=== PATIENT | female | born 1990 | race American Indian/Alaskan Native ===

== ENCOUNTER 2016-11-26 07:46 | Emergency (ER) | payer MEDICAID ==
[2016-11-26 08:37] LABS: Basophils % (Auto) 1.4 % (0.0-1.8); Eosinophils % (Auto) 4.7 % (0.0-4.3); Hematocrit 20.3 % (30.3-42.9); Hemoglobin 7.1 gm/dl (10.1-14.3); Mean Corpuscular HGB Conc 35 % (30-34); Mean Corpuscular Hemoglobin 33 pg (28-32); Mean Corpuscular Volume 94 fl (79-97); Platelet Count 360 K/mm3 (140-440); Red Blood Count 2.16 M/mm3 (3.65-5.03); Reticulocyte % 12.19 % (0.78-2.58); White Blood Count 9.3 K/mm3 (4.5-11.0)
[2016-11-26 08:39] LABS: Red Cell Distribution Width 23.6 % (13.2-15.2)
[2016-11-26] MEDS ORDERED: D5NS 0.2% 1,000 ML IV SCH (09:00)
--- NOTE | 2016-11-26 11:04 | Emergency Department Report ---
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 She is previously unknown to me. She is deaf. She is a past medical history of sickle cell disease and DVT in 2010. The patient presents to the ER complaining of rash. The rest started on her bilateral elbows, forearms, and back, and abdomen, bilateral thighs. It is itchy. It is painless. It has been present for a week. The patient denies new clothing, lotions, perfumes, hygiene products. To me she denies chest pain, shortness of breath, abdominal pain, irritative and obstructive urinary symptoms. She is quite adamant that it is painless. The patient reports that she is visiting family from out of town, and that no one else at home is having any issues with bed bugs, or itching or pruritus. -: Gradual Location: chest, back, abdomen, left, right, upper extremity, lower extremity Consistency: constant Improves with: none Worsens with: none Associated Symptoms: denies other symptoms - Related Data Previous Rx's Medication Instructions Recorded Last Taken Type Folic Acid [Folvite] 1 mg PO QDAY #30 tablet 09/07/16 Unknown Rx oxyCODONE /ACETAMINOPHEN [Percocet 2 tab PO Q4H PRN #60 tablet 09/07/16 Unknown Rx 5/325 mg] Permethrin 5% [Acticin 5% CREAM] 1 applicatio TP QDAY #2 tube 11/26/16 Unknown Rx Skin Emollient [Aquaphor] 1 applic TP QID PRN #2 tube 11/26/16 Unknown Rx hydrOXYzine HCL [Atarax] 25 mg PO Q6HR PRN #20 tablet 11/26/16 Unknown Rx Allergies Allergy/AdvReac Type Severity Reaction Status Date / Time No Known Allergies Allergy Verified 06/09/16 07:52 ED Review of Systems ROS: Stated complaint: SICKLE CELL/ RASH/ITCHING Other details as noted in HPI Constitutional: denies: fever, malaise Eyes: denies: vision change ENT: denies: epistaxis Respiratory: denies: cough Cardiovascular: denies: chest pain Gastrointestinal: denies: abdominal pain, nausea, diarrhea Genitourinary: denies: dysuria Musculoskeletal: denies: arthralgia Skin: lesions, pruritus Neurological: denies: weakness ED Past Medical Hx - Past Medical History Hx Hypertension: No Hx CVA: No Hx Heart Attack/AMI: No Hx Congestive Heart Failure: No Hx Diabetes: No Hx Deep Vein Thrombosis: Yes Hx GERD: No Hx Liver Disease: No Hx Renal Disease: No Hx Sickle Cell Disease: Yes Hx Arthritis: No Hx Headaches / Migraines: No Hx Seizures: No Hx Kidney Stones: No Hx Psychiatric Treatment: No Hx Asthma: No Hx COPD: No Hx Tuberculosis: No Hx Dementia: No Hx HIV: No Additional medical history: Deaf - Surgical History Hx Coronary Stent: No Hx Open Heart Surgery: No Hx Pacemaker: No Hx Internal Defibrillator: No Hx Cholecystectomy: Yes Hx Appendectomy: No Hx Breast Surgery: No Additional Surgical History: c section X 2 - Social History Smoking Status: Never Smoker Substance Use Type: None - Medications Home Medications: Home Medications Medication Instructions Recorded Confirmed Last Taken Type Folic Acid [Folvite] 1 mg PO QDAY #30 tablet 09/07/16 11/26/16 Unknown Rx oxyCODONE /ACETAMINOPHEN [Percocet 2 tab PO Q4H PRN #60 tablet 09/07/16 Unknown Rx 5/325 mg] Permethrin 5% [Acticin 5% CREAM] 1 applicatio TP QDAY #2 tube 11/26/16 Unknown Rx Skin Emollient [Aquaphor] 1 applic TP QID PRN #2 tube 11/26/16 Unknown Rx hydrOXYzine HCL [Atarax] 25 mg PO Q6HR PRN #20 tablet 11/26/16 Unknown Rx ED Physical Exam - General Limitations: Language Barrier (deaf), Other (patient noted on cell phone, no distress. texting And playing on cell phone.) General appearance: alert, in no apparent distress - Head Head exam: Present: atraumatic, normocephalic - Eye Eye exam: Present: normal appearance, EOMI. Absent: nystagmus - ENT ENT exam: Present: normal exam, normal orophraynx, mucous membranes moist, normal external ear exam - Neck Neck exam: Present: normal inspection, full ROM. Absent: tenderness, meningismus - Respiratory Respiratory exam: Present: normal lung sounds bilaterally. Absent: respiratory distress, wheezes, rales, rhonchi, stridor, chest wall tenderness, accessory muscle use, decreased breath sounds, prolonged expiratory - Cardiovascular Cardiovascular Exam: Present: regular rate, normal rhythm, normal heart sounds. Absent: bradycardia, tachycardia, irregular rhythm, systolic murmur, diastolic murmur, rubs, gallop - GI/Abdominal GI/Abdominal exam: Present: soft, normal bowel sounds. Absent: distended, tenderness, guarding, rebound, rigid, pulsatile mass - Extremities Exam Extremities exam: Present: normal inspection, full ROM, normal capillary refill , other (there are eczematous lesions noted in the bilateral antecubital fossa. There are numerous raised lesions noted in the bilateral upper and lower extremity's, bilateral lateral thighs. During the leg examination, I am escorted by nurse Darnell Weaver. There is no redness, pus, streaking, crepitus or cellulitis. The compartments are soft. 2+ pulses noted in for 4 extremities ). Absent: tenderness, pedal edema, joint swelling, calf tenderness - Back Exam Back exam: Present: normal inspection, full ROM. Absent: tenderness, CVA tenderness (R), CVA tenderness (L), muscle spasm, paraspinal tenderness, vertebral tenderness - Neurological Exam Neurological exam: Present: alert, normal gait, other (Extraocular movements intact. Tongue midline. No facial droop. Facial sensation intact to light touch in the V1, V2, V3 distribution bilaterally. 5 and 5 strength in 4 extremities.. Sensation is intact to light touch in 4 extremities.). Absent: motor sensory deficit - Psychiatric Psychiatric exam: Present: normal affect, normal mood - Skin Skin exam: Present: warm, dry, rash ED Course Vital Signs 11/26/16 11/26/16 11/26/16 07:58 10:13 10:20 Temperature 98.5 F Pulse Rate 88 77 78 Respiratory 18 13 Rate Blood Pressure 110/68 102/47 O2 Sat by Pulse 97 98 Oximetry 11/26/16 11/26/16 11/26/16 10:27 10:30 11:00 Temperature Pulse Rate 81 77 Respiratory 12 20 21 Rate Blood Pressure 102/47 91/38 O2 Sat by Pulse 97 95 96 Oximetry 11/26/16 11/26/16 11/26/16 11:30 12:00 12:30 Temperature Pulse Rate 66 75 68 Respiratory 24 15 18 Rate Blood Pressure 91/38 91/38 91/38 O2 Sat by Pulse 97 96 100 Oximetry - Reevaluation(s) Reevaluation #1: 11/26/16 12:57 Differential diagnosis: Nonspecific rash, eczema, nonspecific transaminitis, chronic sickle cell disease which is asymptomatic, bedbugs, nonspecific dermatitis Assessment and plan: 26-year-old female with nonspecific rash that is painless. Contrary to what is documented in the nursing note, using a design drafter, the patient is adamant that she is not having pain. She is afebrile with reassuring vital signs, has chronic anemia, chronic elevated reticulocyte count, but appears quite comfortable, without scleral icterus. Has a mild transaminitis, denies irritative obstructive urinary symptoms, and has some pulmonary symptoms. I explained to the patient using a design drafter that her condition is very unlikely to be dangerous or life-threatening, we will start her on Atarax and Aquaphor, and refer her to outpatient dermatology. I did offer the patient empiric treatment for bed bugs, but she does not want it. Nevertheless , I will discharge her with permethrin in case she changes her mind. ED Medical Decision Making - Lab Data Result diagrams: 11/26/16 08:07 11/26/16 11:07 Vital Signs 11/26/16 11/26/16 11/26/16 07:58 10:13 10:20 Temperature 98.5 F Pulse Rate 88 77 78 Respiratory 18 13 Rate Blood Pressure 110/68 102/47 O2 Sat by Pulse 97 98 Oximetry 11/26/16 10:27 Temperature Pulse Rate Respiratory 12 Rate Blood Pressure O2 Sat by Pulse 97 Oximetry Labs 11/26/16 11/26/16 11/26/16 08:07 11:07 11:07 WBC 9.3 RBC 2.16 L Hgb 7.1 L Hct 20.3 L MCV 94 MCH 33 H MCHC 35 H RDW 23.6 H Plt Count 360 Lymph % (Auto) 26.3 [place] % (Auto) 7.5 H Eos % (Auto) 4.7 H Baso % (Auto) 1.4 Lymph # 2.4 [place] # 0.7 Eos # 0.4 Baso # 0.1 Seg Neutrophils % 60.1 Seg Neutrophils # 5.6 Percent Retic 12.19 H Sodium 140 Potassium 3.4 L Chloride 103.3 Carbon Dioxide 25 Anion Gap 15 BUN 5 L Creatinine < 0.2 L Estimated GFR > 60 BUN/Creatinine Ratio 25.00 Glucose 123 H Calcium 9.3 Total Bilirubin 3.70 H AST 79 H ALT 82 H Alkaline Phosphatase 76 Total Protein 6.9 Albumin 4.2 Albumin/Globulin Ratio 1.6 HCG, Quant < 2 - Radiology Data Radiology results: report reviewed, image reviewed X-ray of the chest demonstrates mild cardiomegaly and vascular congestion Critical care attestation.: If time is entered above; I have spent that time in minutes in the direct care of this critically ill patient, excluding procedure time. ED Disposition Clinical Impression: Rash Disposition: DISCHARGED TO HOME OR SELFCARE Is pt being admited?: No Does the pt Need Aspirin: No Condition: Stable Instructions: Acute Rash (ED) Additional Instructions: Take the medications as directed. Wash all linens, clothing, sheets with hot soap and water. Have your current house evaluated by an general counsel for possible bedbug infestation. Laboratory studies indicating chronic anemia, nonspecific elevation in liver function tests, x-ray of the chest and mistreated mild pulmonary vascular congestion and enlarged heart. I recommend that you follow with a primary care doctor for these findings within the next month. Dr. Benoit is a local primary care doctor. Dr. Gonzalez is a local intervention specialist. I recommended follow-up with a local school athletic director as well. Follow-up with a school athletic director within the next [address] Skaggs is a local solar energy specialist. Return to the ER right away with fevers or chills, chest pain or shortness of breath, intractable nausea or vomiting, inability to tolerate liquids. Prescriptions: hydrOXYzine HCL [Atarax] 25 mg PO Q6HR PRN #20 tablet PRN Reason: Itching Permethrin 5% [Acticin 5% CREAM] 1 applicatio TP QDAY #2 tube Skin Emollient [Aquaphor] 1 applic TP QID PRN #2 tube PRN Reason: Itching Referrals: PRIMARY CARE, [Primary Care Provider] - 3-5 Days YOANA GONZALEZ DO [Staff Physician] - 3-5 Days MEGHNA SKAGGS MD [Staff Physician] - 3-5 Days ELSA BENOIT MD [Staff Physician] - 3-5 Days
[2016-11-26 11:46] LABS: Alanine Aminotransferase 82 units/L (7-56); Albumin 4.2 g/dL (3.9-5); Blood Urea Nitrogen 5 mg/dL (7-17); Calcium 9.3 mg/dL (8.4-10.2); Carbon Dioxide 25 mmol/L (22-30); Glucose 123 mg/dL (65-100); Total Protein 6.9 g/dL (6.3-8.2)
[2016-11-26 11:47] LABS: Albumin/Globulin Ratio 1.6 %; Alkaline Phosphatase 76 units/L (35-129); Anion Gap 15 mmol/L; Chloride 103.3 mmol/L (98-107); Potassium 3.4 mmol/L (3.6-5.0); Sodium 140 mmol/L (137-145)
--- NOTE | 2016-11-26 12:20 | XRay Report ---
AP CHEST: HISTORY: Chest pain, sickle cell crisis Compared to 09/03/16. Mild cardiomegaly and mild pulmonary venous congestion have developed. There is no evidence for consolidation, pleural effusion or pneumothorax. Normal bony structures. IMPRESSION: Mild cardiomegaly and vascular congestion.
[2016-11-26 13:12] VITALS: BP 91/38
== END 2016-11-26 13:20 | disposition home or self-care (01) ==
LOC: ED 07:46
DX: R21 Rash and other nonspecific skin eruption (principal); Z86.718 Personal history of other venous thrombosis and embolism
CPT/HCPCS: 36415; 71010; 80053; 84702; 85025; 85045; 96360; 96361; 99284

== ENCOUNTER 2018-09-09 13:52 | Emergency (ER) | payer MEDICAID, OTHER ==
--- NOTE | 2018-09-09 14:12 | Emergency Department Report ---
Chief Complaint: Chest Pain Stated Complaint: CHEST PAIN Time Seen by Provider: 09/09/18 13:58 - HPI History of Present Illness: CC R SIDED CHEST PAIN- CHEST, ABD AND LEG. NO SOB DENIES MED HX NO MEDS DAILY DEAF SINCE 3 DOES NOT KNOW WHY - Exam Vital Signs: Vital Signs 09/09/18 14:09 Temperature 99.2 F Pulse Rate 109 H Respiratory 16 Rate Blood Pressure 105/61 O2 Sat by Pulse 100 Oximetry MSE screening note: Focused history and physical exam performed. Due to findings the following was ordered: ED Disposition for MSE Condition: Stable
[2018-09-09 15:09] LABS: Hemoglobin 9.2 gm/dl (10.1-14.3); Mean Corpuscular HGB Conc 35 % (30-34); Mean Corpuscular Volume 89 fl (79-97); Platelet Count 516 K/mm3 (140-440); Red Blood Count 2.93 M/mm3 (3.65-5.03); Red Cell Distribution Width 15.8 % (13.2-15.2)
[2018-09-09 15:24] LABS: Alanine Aminotransferase 83 units/L (7-56); Albumin 4.4 g/dL (3.9-5); BUN/Creatinine Ratio 35; Blood Urea Nitrogen 7 mg/dL (7-17); Calcium 9.9 mg/dL (8.4-10.2); Hemolysis Index 1
[2018-09-09 15:53] LABS: Basophils # (Auto) 0.2 K/mm3 (0.0-0.1); Eosinophils # (Auto) 0.3 K/mm3 (0.0-0.4); Eosinophils % (Auto) 2.4 % (0.0-4.3); Monocytes # (Auto) 0.9 K/mm3 (0.0-0.8); Monocytes % (Auto) 8.5 % (0.0-7.3)
[2018-09-09 16:08] LABS: Basophils % (Auto) 1.5 % (0.0-1.8); Lymphocytes # (Auto) 1.8 K/mm3 (1.2-5.4); Lymphocytes % (Auto) 16.6 % (13.4-35.0)
[2018-09-09] MEDS ORDERED: ZOFRAN IV ONE ×2 (18:11→19:09)
[2018-09-09] MEDS ORDERED: NACL 0.9% 1000 ML 1,000 ML IV ONE ×2 (18:11→19:09)
[2018-09-09] MEDS ORDERED: MORPHINE IV ONE (18:11)
--- NOTE | 2018-09-09 18:11 | Emergency Department Report ---
ED General Adult HPI - General Chief complaint: Chest Pain Stated complaint: CHEST PAIN Time Seen by Provider: 09/09/18 13:58 Source: patient Mode of arrival: Ambulatory Limitations: No Limitations, Other - History of Present Illness Initial comments: Patient is deaf and utilize written communication. Patient is able to read and write well. Communication machine attempted use but no sign linguist just available. This is a 27-year-old female here report that she is having chest pain and some shortness of breath and she has a history of sickle cell. She reports that she is having pain all over to include her arms legs especially at her right knee without any injury. She is also saying that she has a history of blood clot and she is worried. Denies any fever or chills. Denies any back pain, urinary burning frequency or any vaginal bleeding. She reports she is having some abdominal cramping around her umbilical area. Pain is 9-10 all over and achy N/cramping. Pain is constant and she says she has not taken any medication at home. Onset/Timin -: days(s) Location: chest, abdomen (U), left, right, upper extremity, lower extremity Radiation: non-radiation Severity scale (0 -10): 9 Quality: stabbing, constant Consistency: constant Improves with: none Worsens with: movement Associated Symptoms: chest pain. denies: confusion, cough, diaphoresis, fever/chills, headaches, loss of appetite, malaise, nausea/vomiting, shortness of breath, syncope, weakness Treatments Prior to Arrival: none - Related Data Previous Rx's Medication Instructions Recorded Last Taken Type Folic Acid [Folvite] 1 mg PO QDAY #30 tablet 09/07/16 Unknown Rx oxyCODONE /ACETAMINOPHEN [Percocet 2 tab PO Q4H PRN #60 tablet 09/07/16 Unknown Rx 5/325 mg] Permethrin 5% [Acticin 5% CREAM] 1 applicatio TP QDAY #2 tube 11/26/16 Unknown Rx Skin Emollient [Aquaphor] 1 applic TP QID PRN #2 tube 11/26/16 Unknown Rx hydrOXYzine HCL [Atarax] 25 mg PO Q6HR PRN #20 tablet 11/26/16 Unknown Rx ALBUTEROL Inhaler(NF) [VENTOLIN 2 puff IH Q6H PRN 1 Days #1 inha 09/10/18 Unknown Rx Inhaler(NF)] Acetaminophen/Codeine [Tylenol 1 tab PO Q6H PRN #14 tab 09/10/18 Unknown Rx /Codeine # 3 tab] Amoxicillin/K Clav Tab [Augmentin 1 tab PO Q12HR #20 tab 09/10/18 Unknown Rx 875MG TAB] Docusate Sodium [Colace] 100 mg PO BID 30 Days #60 capsule 09/10/18 Unknown Rx Ferrous Sulfate [Feosol 325 MG tab] 325 mg PO BID 30 Days #60 tablet 09/10/18 Unknown Rx Allergies Allergy/AdvReac Type Severity Reaction Status Date / Time No Known Allergies Allergy Verified 09/09/18 13:53 ED Review of Systems ROS: Stated complaint: CHEST PAIN Other details as noted in HPI Constitutional: denies: chills, fever ENT: denies: ear pain, congestion Respiratory: denies: cough, shortness of breath, wheezing Cardiovascular: denies: chest pain, palpitations, dyspnea on exertion, edema, syncope Gastrointestinal: denies: abdominal pain, nausea, vomiting Genitourinary: denies: dysuria, frequency, hematuria, discharge, abnormal menses Musculoskeletal: arthralgia. denies: back pain, joint swelling, myalgia Skin: denies: rash Neurological: denies: headache, numbness, paresthesias, confusion, abnormal gait, vertigo ED Past Medical Hx - Past Medical History Previous Medical History?: Yes Hx Hypertension: No Hx CVA: No Hx Heart Attack/AMI: No Hx Congestive Heart Failure: No Hx Diabetes: No Hx Deep Vein Thrombosis: Yes Hx GERD: No Hx Liver Disease: No Hx Renal Disease: No Hx Sickle Cell Disease: Yes Hx Arthritis: No Hx Headaches / Migraines: No Hx Seizures: No Hx Kidney Stones: No Hx Psychiatric Treatment: No Hx Asthma: No Hx COPD: No Hx Tuberculosis: No Hx Dementia: No Hx HIV: No Additional medical history: Deaf - Surgical History Past Surgical History?: Yes Hx Coronary Stent: No Hx Open Heart Surgery: No Hx Pacemaker: No Hx Internal Defibrillator: No Hx Cholecystectomy: Yes Hx Appendectomy: No Hx Breast Surgery: No Additional Surgical History: c section X 2 - Family History Family history: no significant - Social History Smoking Status: Never Smoker Substance Use Type: None - Medications Home Medications: Home Medications Medication Instructions Recorded Confirmed Last Taken Type Folic Acid [Folvite] 1 mg PO QDAY #30 tablet 09/07/16 11/26/16 Unknown Rx oxyCODONE /ACETAMINOPHEN [Percocet 2 tab PO Q4H PRN #60 tablet 09/07/16 11/26/16 Unknown Rx 5/325 mg] Permethrin 5% [Acticin 5% CREAM] 1 applicatio TP QDAY #2 tube 11/26/16 Unknown Rx Skin Emollient [Aquaphor] 1 applic TP QID PRN #2 tube 11/26/16 Unknown Rx hydrOXYzine HCL [Atarax] 25 mg PO Q6HR PRN #20 tablet 11/26/16 Unknown Rx ALBUTEROL Inhaler(NF) [VENTOLIN 2 puff IH Q6H PRN 1 Days #1 inha 09/10/18 Unknown Rx Inhaler(NF)] Acetaminophen/Codeine [Tylenol 1 tab PO Q6H PRN #14 tab 09/10/18 Unknown Rx /Codeine # 3 tab] Amoxicillin/K Clav Tab [Augmentin 1 tab PO Q12HR #20 tab 09/10/18 Unknown Rx 875MG TAB] Docusate Sodium [Colace] 100 mg PO BID 30 Days #60 capsule 09/10/18 Unknown Rx Ferrous Sulfate [Feosol 325 MG tab] 325 mg PO BID 30 Days #60 tablet 09/10/18 Unknown Rx ED Physical Exam - General Limitations: No Limitations, Other General appearance: alert, in no apparent distress - Head Head exam: Present: atraumatic, normocephalic, normal inspection, other (normal exam) - Eye Eye exam: Present: normal appearance, PERRL, EOMI Pupils: Present: normal accommodation - ENT ENT exam: Present: normal exam, normal orophraynx, mucous membranes moist, TM's normal bilaterally, normal external ear exam - Neck Neck exam: Present: normal inspection, full ROM, other (no C-spine tenderness). Absent: tenderness, lymphadenopathy - Respiratory Respiratory exam: Present: normal lung sounds bilaterally. Absent: respiratory distress, wheezes, rales, rhonchi, stridor, chest wall tenderness, accessory muscle use, decreased breath sounds, prolonged expiratory - Cardiovascular Cardiovascular Exam: Present: normal rhythm, tachycardia, normal heart sounds. Absent: systolic murmur, diastolic murmur - GI/Abdominal GI/Abdominal exam: Present: soft, normal bowel sounds. Absent: distended, tenderness, guarding, rebound, rigid, organomegaly, mass, hernia - Extremities Exam Extremities exam: Present: normal inspection, full ROM, normal capillary refill, other (No cce. + 2 pulses in all extremities, no neurovascular compromise and negative Homans sign). Absent: tenderness, pedal edema, joint swelling, calf tenderness - Back Exam Back exam: Present: normal inspection, full ROM, other (ambulates without any difficulties). Absent: tenderness, CVA tenderness (R), CVA tenderness (L), muscle spasm, paraspinal tenderness, vertebral tenderness, rash noted - Neurological Exam Neurological exam: Present: alert, oriented X3, normal gait - Psychiatric Psychiatric exam: Present: normal affect, normal mood - Skin Skin exam: Present: warm, dry, intact, normal color. Absent: rash ED Course Vital Signs 09/09/18 09/10/18 14:09 03:20 Temperature 99.2 F 98.8 F Pulse Rate 109 H 84 Respiratory 16 16 Rate Blood Pressure 105/61 Blood Pressure 111/64 [Left] O2 Sat by Pulse 100 100 Oximetry - Reevaluation(s) Reevaluation #1: 09/09/18 19:10 Patient received 1 L of normal saline, morphine 4 mg IV and Zofran 4 mg IV in the emergency room for pain. Reevaluation #2: 09/10/18 20:105 She still complained of pain since she receives Zofran 4 mg IV and additional 1 L of normal saline bolus, Dilaudid 1 mg IV. Reevaluation #3: Patient Up to date through written communication. 09/10/18 22:37 She received Toradol 30 mg IV for pain and 5/10. She reports the pain is better. Patient awaiting VQ scan. She had attempted to have CT scan but IV infiltrated. Reevaluation #4: 09/10/18 01:38 She received Dilaudid 1 mg IV and Zofran 4 mg IV for recurrent pain with relief. She is awaiting results of VQ scan. She does not have any chest pain or shortness of breath is present. Chest x-ray with negative findings. Left stable in urinalysis shows that she has urinary tract infection. Reevaluation #5: 09/10/18 01:[address] A of the chest done and reports dictated by radiologist but reports similar to other reports that were sent over a different patient so I spoke with areas and they will be looking into the CT scan of the various patient. Still awaiting in VQ scan. construction equipment technician at said that IV had infiltrated an d nurse and let me know and VQ scan was called in therefore patient has CTA chest and also VQ scan. 09/10/18 02:50 VQ scan shows low probability for clots. I spoke with Dr. Max has already left. He reviewed all radiology studies, laboratory reported to include passed laboratory reports for comparison and it was decided that patient will be discharged home on Augmentin to start tonight . ED Medical Decision Making - Lab Data Result diagrams: 09/09/18 14:50 09/09/18 14:50 Lab Results 09/09/18 09/09/18 09/09/18 Range/Units 14:50 14:50 14:50 WBC 10.9 (4.5-11.0) K/mm3 RBC 2.93 L (3.65-5.03) M/mm3 Hgb 9.2 L (10.1-14.3) gm/dl Hct 26.0 L (30.3-42.9) % MCV 89 (79-97) fl MCH 31 (28-32) pg MCHC 35 H (30-34) % RDW 15.8 H (13.2-15.2) % Plt Count 516 H (140-440) K/mm3 Lymph % (Auto) 16.6 (13.4-35.0) % [place] % (Auto) 8.5 H (0.0-7.3) % Eos % (Auto) 2.4 (0.0-4.3) % Baso % (Auto) 1.5 (0.0-1.8) % Lymph # 1.8 (1.2-5.4) K/mm3 [place] # 0.9 H (0.0-0.8) K/mm3 Eos # 0.3 (0.0-0.4) K/mm3 Baso # 0.2 H (0.0-0.1) K/mm3 Add Manual Diff Complete Total Counted Cancelled Seg Neutrophils % 71.0 H (40.0-70.0) % Seg Neuts % (Manual) Cancelled Band Neutrophils % Cancelled Lymphocytes % (Manual) Cancelled Reactive Lymphs % (Man) Cancelled Monocytes % (Manual) Cancelled Eosinophils % (Manual) Cancelled Basophils % (Manual) Cancelled Metamyelocytes % Cancelled Myelocytes % Cancelled Promyelocytes % Cancelled Blast Cells % Cancelled Nucleated RBC % Cancelled Seg Neutrophils # 7.6 (1.8-7.7) K/mm3 Seg Neutrophils # Man Cancelled Band Neutrophils # Cancelled Lymphocytes # (Manual) Cancelled Abs React Lymphs (Man) Cancelled Monocytes # (Manual) Cancelled Eosinophils # (Manual) Cancelled Basophils # (Manual) Cancelled Metamyelocytes # Cancelled Myelocytes # Cancelled Promyelocytes # Cancelled Blast Cells # Cancelled WBC Morphology Cancelled Hypersegmented Neuts Cancelled Hyposegmented Neuts Cancelled Hypogranular Neuts Cancelled Hypersegmented Polys Cancelled Smudge Cells Cancelled Toxic Granulation Cancelled Toxic Vacuolation Cancelled Dohle Bodies Cancelled Pelger-Huet Anomaly Cancelled Manasa Rods Cancelled Platelet Estimate Cancelled Clumped Platelets Cancelled Plt Clumps, EDTA Cancelled Large Platelets Cancelled Giant Platelets Cancelled Platelet Satelliting Cancelled Plt Morphology Comment Cancelled RBC Morphology Cancelled Dimorphic RBCs Cancelled Polychromasia Cancelled Hypochromasia Cancelled Poikilocytosis Cancelled Basophilic Stippling Cancelled Anisocytosis Cancelled Microcytosis Cancelled Macrocytosis Cancelled Spherocytes Cancelled Pappenheimer Bodies Cancelled Sickle Cells Cancelled Target Cells Cancelled Tear Drop Cells Cancelled Ovalocytes Cancelled Stomatocytes Cancelled Helmet Cells Cancelled Zamora-Burrows Bodies Cancelled [place] Rings Cancelled [place] Cells Cancelled Bite Cells Cancelled Crenated Cell Cancelled Elliptocytes Cancelled Acanthocytes (Spur) Cancelled Rouleaux Cancelled Hemoglobin C Crystals Cancelled Schistocytes Cancelled Malaria parasites Cancelled Percent Retic (0.78-2.58) % Gopal Bodies Cancelled Hem Pathologist Commnt Cancelled D-Dimer (0-234) ng/mlDDU Sodium 137 (137-145) mmol/L Potassium 3.8 (3.6-5.0) mmol/L Chloride 98.9 (98-107) mmol/L Carbon Dioxide 23 (22-30) mmol/L Anion Gap 19 mmol/L BUN 7 (7-17) mg/dL Creatinine 0.2 L (0.7-1.2) mg/dL Estimated GFR > 60 ml/min BUN/Creatinine Ratio 35 % Glucose 108 H (65-100) mg/dL Calcium 9.9 (8.4-10.2) mg/dL Total Bilirubin 2.80 H (0.1-1.2) mg/dL AST 86 H (5-40) units/L ALT 83 H (7-56) units/L Alkaline Phosphatase 191 H (35-129) units/L Total Protein 8.5 H (6.3-8.2) g/dL Albumin 4.4 (3.9-5) g/dL Albumin/Globulin Ratio 1.1 % Lipase 14 (13-60) units/L Urine Color (Yellow) Urine Turbidity (Clear) Urine pH (5.0-7.0) Ur Specific [place] (1.003-1.030) Urine Protein (Negative) mg/dL Urine Glucose (UA) (Negative) mg/dL Urine Ketones (Negative) mg/dL Urine Blood (Negative) Urine Nitrite (Negative) Urine Bilirubin (Negative) Urine Urobilinogen (<2.0) mg/dL Ur Leukocyte Esterase (Negative) Urine WBC (Auto) (0.0-6.0) /HPF Urine RBC (Auto) (0.0-6.0) /HPF U Epithel Cells (Auto) (0-13.0) /HPF Urine Bacteria (Auto) (Negative) /HPF Urine Mucus /HPF Urine HCG, Qual (Negative) 09/09/18 09/09/18 09/09/18 Range/Units 14:50 17:30 17:30 WBC (4.5-11.0) K/mm3 RBC (3.65-5.03) M/mm3 Hgb (10.1-14.3) gm/dl Hct (30.3-42.9) % MCV (79-97) fl MCH (28-32) pg MCHC (30-34) % RDW (13.2-15.2) % Plt Count (140-440) K/mm3 Lymph % (Auto) (13.4-35.0) % [place] % (Auto) (0.0-7.3) % Eos % (Auto) (0.0-4.3) % Baso % (Auto) (0.0-1.8) % Lymph # (1.2-5.4) K/mm3 [place] # (0.0-0.8) K/mm3 Eos # (0.0-0.4) K/mm3 Baso # (0.0-0.1) K/mm3 Add Manual Diff Total Counted Seg Neutrophils % (40.0-70.0) % Seg Neuts % (Manual) Band Neutrophils % Lymphocytes % (Manual) Reactive Lymphs % (Man) Monocytes % (Manual) Eosinophils % (Manual) Basophils % (Manual) Metamyelocytes % Myelocytes % Promyelocytes % Blast Cells % Nucleated RBC % Seg Neutrophils # (1.8-7.7) K/mm3 Seg Neutrophils # Man Band Neutrophils # Lymphocytes # (Manual) Abs React Lymphs (Man) Monocytes # (Manual) Eosinophils # (Manual) Basophils # (Manual) Metamyelocytes # Myelocytes # Promyelocytes # Blast Cells # WBC Morphology Hypersegmented Neuts Hyposegmented Neuts Hypogranular Neuts Hypersegmented Polys Smudge Cells Toxic Granulation Toxic Vacuolation Dohle Bodies Pelger-Huet Anomaly Manasa Rods Platelet Estimate Clumped Platelets Plt Clumps, EDTA Large Platelets Giant Platelets Platelet Satelliting Plt Morphology Comment RBC Morphology Dimorphic RBCs Polychromasia Hypochromasia Poikilocytosis Basophilic Stippling Anisocytosis Microcytosis Macrocytosis Spherocytes Pappenheimer Bodies Sickle Cells Target Cells Tear Drop Cells Ovalocytes Stomatocytes Helmet Cells Zamora-Burrows Bodies [place] Rings Anuja Cells Bite Cells Crenated Cell Elliptocytes Acanthocytes (Spur) Rouleaux Hemoglobin C Crystals Schistocytes Malaria parasites Percent Retic 2.73 H (0.78-2.58) % Gopal Bodies Hem Pathologist Commnt D-Dimer (0-234) ng/mlDDU Sodium (137-145) mmol/L Potassium (3.6-5.0) mmol/L Chloride (98-107) mmol/L Carbon Dioxide (22-30) mmol/L Anion Gap mmol/L BUN (7-17) mg/dL Creatinine (0.7-1.2) mg/dL Estimated GFR ml/min BUN/Creatinine Ratio % Glucose (65-100) mg/dL Calcium (8.4-10.2) mg/dL Total Bilirubin (0.1-1.2) mg/dL AST (5-40) units/L ALT (7-56) units/L Alkaline Phosphatase (35-129) units/L Total Protein (6.3-8.2) g/dL Albumin (3.9-5) g/dL Albumin/Globulin Ratio % Lipase (13-60) units/L Urine Color [place] (Yellow) Urine Turbidity Slightly-cloudy (Clear) Urine pH 5.0 (5.0-7.0) Ur Specific [place] 1.009 (1.003-1.030) Urine Protein <15 mg/dl (Negative) mg/dL Urine Glucose (UA) Neg (Negative) mg/dL Urine Ketones Neg (Negative) mg/dL Urine Blood Neg (Negative) Urine Nitrite Neg (Negative) Urine Bilirubin Neg (Negative) Urine Urobilinogen 2.0 (<2.0) mg/dL Ur Leukocyte Esterase Lg (Negative) Urine WBC (Auto) 30.0 H (0.0-6.0) /HPF Urine RBC (Auto) 80.0 (0.0-6.0) /HPF U Epithel Cells (Auto) 10.0 (0-13.0) /HPF Urine Bacteria (Auto) 1+ (Negative) /HPF Urine Mucus Few /HPF Urine HCG, Qual Negative (Negative) 09/09/18 Range/Units 18:56 WBC (4.5-11.0) K/mm3 RBC (3.65-5.03) M/mm3 Hgb (10.1-14.3) gm/dl Hct (30.3-42.9) % MCV (79-97) fl MCH (28-32) pg MCHC (30-34) % RDW (13.2-15.2) % Plt Count (140-440) K/mm3 Lymph % (Auto) (13.4-35.0) % [place] % (Auto) (0.0-7.3) % Eos % (Auto) (0.0-4.3) % Baso % (Auto) (0.0-1.8) % Lymph # (1.2-5.4) K/mm3 [place] # (0.0-0.8) K/mm3 Eos # (0.0-0.4) K/mm3 Baso # (0.0-0.1) K/mm3 Add Manual Diff Total Counted Seg Neutrophils % (40.0-70.0) % Seg Neuts % (Manual) Band Neutrophils % Lymphocytes % (Manual) Reactive Lymphs % (Man) Monocytes % (Manual) Eosinophils % (Manual) Basophils % (Manual) Metamyelocytes % Myelocytes % Promyelocytes % Blast Cells % Nucleated RBC % Seg Neutrophils # (1.8-7.7) K/mm3 Seg Neutrophils # Man Band Neutrophils # Lymphocytes # (Manual) Abs React Lymphs (Man) Monocytes # (Manual) Eosinophils # (Manual) Basophils # (Manual) Metamyelocytes # Myelocytes # Promyelocytes # Blast Cells # WBC Morphology Hypersegmented Neuts Hyposegmented Neuts Hypogranular Neuts Hypersegmented Polys Smudge Cells Toxic Granulation Toxic Vacuolation Dohle Bodies Pelger-Huet Anomaly Manasa Rods Platelet Estimate Clumped Platelets Plt Clumps, EDTA Large Platelets Giant Platelets Platelet Satelliting Plt Morphology Comment RBC Morphology Dimorphic RBCs Polychromasia Hypochromasia Poikilocytosis Basophilic Stippling Anisocytosis Microcytosis Macrocytosis Spherocytes Pappenheimer Bodies Sickle Cells Target Cells Tear Drop Cells Ovalocytes Stomatocytes Helmet Cells Zamora-Burrows Bodies [place] Rings Anuja Cells Bite Cells Crenated Cell Elliptocytes Acanthocytes (Spur) Rouleaux Hemoglobin C Crystals Schistocytes Malaria parasites Percent Retic (0.78-2.58) % Gopal Bodies Hem Pathologist Commnt D-Dimer 1969.46 H (0-234) ng/mlDDU Sodium (137-145) mmol/L Potassium (3.6-5.0) mmol/L Chloride (98-107) mmol/L Carbon Dioxide (22-30) mmol/L Anion Gap mmol/L BUN (7-17) mg/dL Creatinine (0.7-1.2) mg/dL Estimated GFR ml/min BUN/Creatinine Ratio % Glucose (65-100) mg/dL Calcium (8.4-10.2) mg/dL Total Bilirubin (0.1-1.2) mg/dL AST (5-40) units/L ALT (7-56) units/L Alkaline Phosphatase (35-129) units/L Total Protein (6.3-8.2) g/dL Albumin (3.9-5) g/dL Albumin/Globulin Ratio % Lipase (13-60) units/L Urine Color (Yellow) Urine Turbidity (Clear) Urine pH (5.0-7.0) Ur Specific [place] (1.003-1.030) Urine Protein (Negative) mg/dL Urine Glucose (UA) (Negative) mg/dL Urine Ketones (Negative) mg/dL Urine Blood (Negative) Urine Nitrite (Negative) Urine Bilirubin (Negative) Urine Urobilinogen (<2.0) mg/dL Ur Leukocyte Esterase (Negative) Urine WBC (Auto) (0.0-6.0) /HPF Urine RBC (Auto) (0.0-6.0) /HPF U Epithel Cells (Auto) (0-13.0) /HPF Urine Bacteria (Auto) (Negative) /HPF Urine Mucus /HPF Urine HCG, Qual (Negative) Urine culture sent - EKG Data -: EKG Interpreted by Me (attending physician) EKG shows normal: sinus rhythm Rate: normal (sinus rhythm at 95 bpm) - EKG Data Interpretation: no acute changes, normal EKG - Radiology Data Radiology results: report reviewed ( to call if he is) CTA chest dictated by radiologist reports reviewed by myself. I call [facility] radiology to take a second look at the CT of chest . VQ scan shows no acute processes. X-ray of the right knee and x-ray of chest dictated by radiologist. Knee x-ray with negative findings and chest x-ray shows alveolar infiltrates in the left upper and right middle lobes. No wall thickening is noted bilaterally with suggest bronchitis. I am unable to populate this area with x-rays due to radiology malfunction Findings [facility] [address] [place] [address] Cat Scan Report Signed Patient: RAQUEL HORN MR#: [id number] : 1990 Acct:[id number] Age/Sex: 27 / F ADM Date: 09/09/18 Loc: ED Attending Dr: Ordering Physician: SILVA ALVAREZ Date of Service: 09/09/18 Procedure(s): CT angio chest Accession Number(s): [id number] cc: SILVA ALVAREZ FINAL REPORT PROCEDURE: CT ANGIO CHEST TECHNIQUE: Computerized axial tomographic angiography of the chest and pulmonary arteries was performed after the IV injection of iodinated nonionic contrast. The image data was postprocessed using maximum intensity projection (MIP) and 2-dimensional multiplanar reformatted (MPR) techniques. The examination is specifically tailored to the evaluation of the pulmonary arteries per clinical request. HISTORY: Short of breath 786.09, chest pain 786.50, elevated d-dimer with h/o dvt. has CP COMPARISON: No prior studies are available for comparison. FINDINGS: Heart and pericardium: Normal. Thoracic aorta: There is no thoracic aortic aneurysm or dissection.. Pulmonary vasculature: Normal. No pulmonary emboli. Lymph nodes: No enlarged thoracic lymph nodes. Lungs: The lungs are expanded. There are bilateral perihilar and lower lobe interstitial infiltrates versus pulmonary edema.. Pleural space: No effusion, thickening, or pneumothorax. Musculoskeletal structures: No significant abnormality. Upper abdominal structures: Images of the upper abdomen demonstrate cholelithias is.. IMPRESSION: There is no evidence of acute pulmonary embolism. There is no thoracic aortic an eurysm or dissection. The lungs are expanded. There are bilateral perihilar and lower lobe inters titial infiltrates versus pulmonary edema.. There is no pleural effusion or pneumothorax. Images of the upper abdomen demonstrate cholelithiasis.. Transcribed By: CO Dictated By: ENIO ERAZO MD Electronically Authenticated By: ENIO ERAZO MD Signed Date/Time: 09/09/18 2717 Findings [facility] [address] [place] [address] Nuclear Medicine Report Signed Patient: RAQUEL HORN MR#: [id number] : 1990 Acct:[id number] Age/Sex: 27 / F ADM Date: 09/09/18 Loc: ED Attending Dr: Ordering Physician: SILVA ALVAREZ Date of Service: 09/10/18 Procedure(s): NM lung scan perf/vent Accession Number(s): [id number] cc: SILVA ALVAREZ FINAL REPORT PROCEDURE: NM LUNG SCAN PERF/VENT TECHNIQUE: Five mCi Tc-99m MAA was injected IV for pulmonary perfusion imaging in multiple projections. Ten mCi Xenon 133 gas was inhaled for pulmonary ventilation imaging in multiple projections. Injection site: RIGHT antecubital fossa. CPT 29409 patient with chest pain and history of DVT/ COMPARISON: CT thorax 09/09/2018 FINDINGS: Perfusion: No defects . Ventilation: No defects . IMPRESSION: Normal Examination Transcribed By: [facility] Dictated By: AWAIS CHU MD Electronically Authenticated By: AWAIS CHU MD Signed Date/Time: 09/10/18200 DD/ 9 TD/TT: 09/10/18199 DD/ 16 TD/TT: 09/09/182316 - Medical Decision Making Written communication used as patient is hearing impaired. This is a 27-year-old female here for chest pain and some shortness of breath and she is worried because she had DVT in the past. She is complaining of lower extremity pain especially right knee pain and denies any injury. She is also complaining of upper extremity pain with some periumbilical cramping. He see detailed report in physical finding. Patient has sickle disease. She has been here several time in her previous charts has been reviewed. Laboratory: Reticular count is 2.73 which is elevated but better than previous. Urinalysis positive for urinary tract infection and culture sent. She will be sent home on antibiotic. CMP stable with elevated liver enzymes which were elevated and previous laboratory. Her test is negative. Troponin is negative d-dimer elevated. Radiology studies: Chest x-ray shows infiltrates, right knee x-ray shows normal exam. CTA of the chest shows no PE but confirms infiltrate and bronchitis. VQ scan low probability for PE. Please see radiology section and reports for a detail of exam. Assessment/plan Pulmonary infiltrate-PNA/bronchitis-lung exam was normal except she is having some chest pain and shortness of breath. Vital signs are stable and she is afebrile. Patient will be started on Augmentin and sent home on Augmentin and also albuterol inhaler. Sickle cell crisis-reticular count is 2.73 patient given 2 L of normal saline and pain medication in emergency room and her pain is better. Atypical chest pain-EKG sinus rhythm at 95 with no acute findings, troponin is normal and her d-dimer was elevated but suspect from inflammatory processes because her CT and V/Q scan negative for PE. Patient is currently having no chest pain. Elevated liver enzymes-patient previous liver enzymes were elevated. She does not have a primary care doctor so I will refer her to [facility]- Acute cystitis with hematuria-patient with abdominal cramping and but no other urinary symptoms. She will be covered with Augmentin and urine culture sent Anemia, chronic-labs reviewed and compared to previous lab work and her H&H is better than previously. I will put her on iron tablets. I discussed all results and reports along with diagnosis treatment plan dischar ge plan and that she needs to follow up at [facility] gastroenterology for her elevated liver enzymes and that she needs a repeat urinalysis in 7 days. I also told her that she will need to have repeat chest x-ray in 10 days. I communicated through written communication to her that she needs to return to the emergency room if her condition worsen otherwise follow- up as instructed. She communicated back and was understanding. Patient did not want to be discharged after she said that she lives in a residential and she is to go up the stairs but I communicated to her that this will not be a criteria for her to be admitted. She is stable and able to ambulate without any difficulties. Patient discharged home with prescription for Augmentin, Tylenol 3 and albuterol and to follow-up in 4 days with some outside [facility] - Differential Diagnosis PE, PNA, pleurisy, ACS, atypical chest pain, costochondritis, SIckling Critical care attestation.: If time is entered above; I have spent that time in minutes in the direct care of this critically ill patient, excluding procedure time. ED Disposition Clinical Impression: Atypical chest pain, Sickle cell anemia with pain, Elevated liver enzymes, Acute cystitis with hematuria Pneumonia, community acquired Qualifiers: Laterality: unspecified laterality Qualified Code(s): J18.9 - Pneumonia, unspecified organism Bronchitis, acute Qualifiers: Bronchitis organism: other organism Qualified Code(s): J20.8 - Acute bronchitis due to other specified organisms Anemia Qualifiers: Anemia type: unspecified type Qualified Code(s): D64.9 - Anemia, unspecified Disposition: DC-01 TO HOME OR SELFCARE Is pt being admited?: No Does the pt Need Aspirin: No Condition: Stable Instructions: Chest Pain (ED), Iron Rich Diet (ED), Sickle Cell Crisis (ED), Acute Bronchitis (ED), Community-acquired Pneumonia (ED), Musculoskeletal Pain (ED), Anemia (ED) Additional Instructions: Please follow up with warehouse operations manager and [facility] in 4 days. Your liver enzyme has been elevated for a while and he will need to follow-up regarding elevated liver enzymes. Take Tylenol 3 for pain but please do not drive or operate heavy machinery while taking this medication as it causes drowsiness Take Augmentin and this will cover bronchitis/pneumonia and urinary tract infection Take albuterol inhaler for bronchitis/pneumonia. Continue to take here folic acid Increasing fluid intake to at least 64 ounces of water daily if you condition worsens, return to the emergency room Take ferrous sulfate with Colace for anemia and Colace for prevention from getting constipated Prescriptions: Acetaminophen/Codeine [Tylenol /Codeine # 3 tab] 1 tab PO Q6H PRN #14 tab PRN Reason: moderate to severe pain ALBUTEROL Inhaler(NF) [VENTOLIN Inhaler(NF)] 2 puff IH Q6H PRN 1 Days #1 inha PRN Reason: cough and wheezing Amoxicillin/K Clav Tab [Augmentin 875MG TAB] 1 tab PO Q12HR #20 tab Docusate Sodium [Colace] 100 mg PO BID 30 Days #60 capsule Ferrous Sulfate [Feosol 325 MG tab] 325 mg PO BID 30 Days #60 tablet Referrals: [facility] [Outside] - 09/13/18 [facility] [Provider Group] - 09/13/18
[2018-09-09 18:25] LABS: Bacteria,Urine 1+ /HPF (Negative); Bilirubin,Urine NEG (Negative); Blood,Urine NEG (Negative); Color,Urine Amber (Yellow); Mucus,Urine FEW /HPF; Protein,Urine <15 mg/dL mg/dL (Negative)
[2018-09-09 18:27] LABS: HCG Qualitative,Urine Negative (Negative)
[2018-09-09] MEDS ORDERED: DILAUDID IM ONE (19:09)
[2018-09-09] MEDS ORDERED: TORADOL IVP ONE (21:51)
--- NOTE | 2018-09-09 23:17 | Cat Scan Report ---
FINAL REPORT PROCEDURE: CT ANGIO CHEST TECHNIQUE: Computerized axial tomographic angiography of the chest and pulmonary arteries was perfor med after the IV injection of iodinated nonionic contrast. The image data was postprocessed using max imum intensity projection (MIP) and 2-dimensional multiplanar reformatted (MPR) techniques. The exami nation is specifically tailored to the evaluation of the pulmonary arteries per clinical request. HISTORY: Short of breath 786.09, chest pain 786.50, elevated d-dimer with h/o dvt. has CP COMPARISON: No prior studies are available for comparison. FINDINGS: Heart and pericardium: Normal. Thoracic aorta: There is no thoracic aortic aneurysm or dissection.. Pulmonary vasculature: Normal. No pulmonary emboli. Lymph nodes: No enlarged thoracic lymph nodes. Lungs: The lungs are expanded. There are bilateral perihilar and lower lobe interstitial infiltrates versus pulmonary edema.. Pleural space: No effusion, thickening, or pneumothorax. Musculoskeletal structures: No significant abnormality. Upper abdominal structures: Images of the upper abdomen demonstrate cholelithiasis.. IMPRESSION: There is no evidence of acute pulmonary embolism. There is no thoracic aortic aneurysm or dissection. The lungs are expanded. There are bilateral perihilar and lower lobe interstitial infiltrates versus pulmonary edema.. There is no pleural effusion or pneumothorax. Images of the upper abdomen demonstrate cholelithiasis..
[2018-09-10] MEDS ORDERED: DILAUDID IV ONE (00:19)
[2018-09-10] MEDS ORDERED: ZOFRAN IV ONE (00:20)
[2018-09-10] MEDS ORDERED: KEFLEX PO ONE (01:28)
--- NOTE | 2018-09-10 02:01 | Nuclear Medicine Report ---
FINAL REPORT PROCEDURE: NM LUNG SCAN PERF/VENT TECHNIQUE: Five mCi Tc-99m MAA was injected IV for pulmonary perfusion imaging in multiple projectio ns. Ten mCi Xenon 133 gas was inhaled for pulmonary ventilation imaging in multiple projections. Inje ction site: RIGHT antecubital fossa. CPT 00082 patient with chest pain and history of DVT/ COMPARISON: CT thorax 09/09/2018 FINDINGS: Perfusion: No defects . Ventilation: No defects . IMPRESSION: Normal Examination
[2018-09-10 03:21] VITALS: BP 111/64
[2018-09-10] MEDS ORDERED: KEFLEX ONE (03:37)
--- NOTE | 2018-09-12 14:15 | XRay Report ---
FINAL REPORT EXAM: XR KNEE 3V RT HISTORY: right knee pain TECHNIQUE: AP, sunrise, oblique, and lateral views of the right knee PRIORS: None. FINDINGS: No acute fracture or dislocation is seen. The soft tissues are unremarkable with no evidence for sup rapatellar joint effusion. Joint spaces are maintained and bony mineralization is normal. IMPRESSION: Negative views of the right knee.
--- NOTE | 2018-09-13 16:38 | XRay Report ---
FINAL REPORT EXAM: XR CHEST ROUTINE 2V HISTORY: Chest Pain TECHNIQUE: PA and lateral views of the chest PRIORS: None. FINDINGS: Lines, tubes, and devices: N/A Lungs and pleura: Trachea is normal in position. There is an alveolar infiltrate in the left upper lo be and right middle lobe. Peribronchial wall thickening is noted bilaterally. Cardiomediastinal silhouette: Cardiac and mediastinal silhouettes are unremarkable. Other: Bony structures are intact. IMPRESSION: Alveolar infiltrate in the left upper and right middle lobes. Peribronchial wall thickening is noted bilaterally which suggests bronchitis
--- NOTE | 2018-09-15 10:20 | Vascular Lab Report ---
FINAL REPORT EXAM: VL VENOUS DUPLEX LE RT HISTORY: previous history of DVT with RLE pain TECHNIQUE: Ultrasound examination of the right lower extremity was performed to evaluate for DVT. PRIORS: None. FINDINGS: The common femoral, greater saphenous, femoral, and popliteal veins are well visualized and easily co mpressible throughout with good color flow. Augmentation is normal at multiple levels from the poplit eal to the common femoral vein levels. Examination of the calf veins demonstrate good visualization and compressibility of the peroneal and posterior tibial veins with good color flow throughout. IMPRESSION: No evidence for DVT identified in the right lower extremity.
== END 2018-09-10 03:38 | disposition home or self-care (01) ==
LOC: ED 13:52
DX: R07.89 Other chest pain (principal); N30.01 Acute cystitis with hematuria; J18.9 Pneumonia, unspecified organism; J20.9 Acute bronchitis, unspecified; D57.1 Sickle-cell disease without crisis; Z86.718 Personal history of other venous thrombosis and embolism; Z90.49 Acquired absence of other specified parts of digestive tract
CPT/HCPCS: 36415; 71046; 71275; 73562; 78582; 80053; 81001; 81025; 83690; 85025; 85045; 85379; 87086; 93005; 93010; 93971; 96372; 96374; 96375; 96376; 99285; A9540; A9558; J1170; J1885; J2270; J2405; J7030; Q9967

== ENCOUNTER 2022-01-22 11:22 | Emergency (ER) | payer SELFPAY ==
[2022-01-22 12:41] LABS: Basophils # (Auto) 0.1 K/mm3 (0.0-0.1); Basophils % (Auto) 1.2 % (0.0-1.8); Eosinophils % (Auto) 0.2 % (0.0-4.3); Hematocrit 35.2 % (30.3-42.9); Hemoglobin 11.5 gm/dl (10.1-14.3); Lymphocytes # (Auto) 1.5 K/mm3 (1.2-5.4); Lymphocytes % (Auto) 13.2 % (13.4-35.0); Mean Corpuscular HGB Conc 33 % (30-34); Mean Corpuscular Volume 87 fl (79-97); Monocytes # (Auto) 0.4 K/mm3 (0.0-0.8); Monocytes % (Auto) 3.9 % (0.0-7.3); Platelet Count 436 K/mm3 (140-440); Red Blood Count 4.03 M/mm3 (3.65-5.03); Red Cell Distribution Width 16.5 % (13.2-15.2)
[2022-01-22 12:51] LABS: INR 1.02 (0.87-1.13)
[2022-01-22 12:54] LABS: Alanine Aminotransferase 130 units/L (7-56); Albumin 5.2 g/dL (3.9-5); Bilirubin,Direct 0.6 mg/dL (0-0.2); Blood Urea Nitrogen 15 mg/dL (7-17); Calcium 10.6 mg/dL (8.4-10.2); Hemolysis Index 5
[2022-01-22 13:09] LABS: BUN/Creatinine Ratio 21
[2022-01-22] MEDS ORDERED: ONDANSETRON 4 MG/2 ML INJ IV ONE (13:18)
[2022-01-22] MEDS ORDERED: SODIUM CHLORIDE 0.9% 1000 ML 1,000 ML IV ONE (13:18)
[2022-01-22] MEDS ORDERED: KETOROLAC 30 MG/1 ML INJ IV ONE (13:18)
[2022-01-22] MEDS ORDERED: cefTRIAXone/NS 1 GM/50 ML 1 GM/50 ML BAG IV ONE (13:18)
[2022-01-22 14:58] LABS: Alanine Aminotransferase 124 units/L (7-56); Albumin 5.2 g/dL (3.9-5); Blood Urea Nitrogen 17 mg/dL (7-17); Calcium 10.6 mg/dL (8.4-10.2); Hemolysis Index 9
[2022-01-22 15:10] LABS: BUN/Creatinine Ratio 28
[2022-01-22] MEDS ORDERED: oxyCODONE 5 MG TAB PO ONE (15:56)
[2022-01-22] MEDS ORDERED: KETOROLAC 60 MG/2 ML INJ IM ONE (16:25)
--- NOTE | 2022-01-22 17:07 | XRay Report ---
CHEST 1 VIEW 01/22/2022 3:59 PM INDICATION / CLINICAL INFORMATION: Dyspnea. COMPARISON: CTA chest from 09/09/2018. FINDINGS: SUPPORT DEVICES: None. HEART / MEDIASTINUM: No significant abnormality. LUNGS / PLEURA: Bibasilar pulmonary opacities are noted along with left midlung subsegmental opacitie s. No other significant pulmonary abnormality. No significant pleural effusion. No pneumothorax. ADDITIONAL FINDINGS: No significant additional findings. IMPRESSION: 1. Bilateral pulmonary opacities are favored to represent atelectasis/scarring. Please correlate with the clinical findings. Signer Name: Vladislav Osorio MD Signed: 01/22/2022 5:02 PM Workstation Name: [id number]
[2022-01-22] MEDS ORDERED: SIMETHICONE 80 MG CHEW TAB PO ONE (17:24)
--- NOTE | 2022-01-22 18:17 | Cat Scan Report ---
CT ABDOMEN AND PELVIS WITHOUT CONTRAST INDICATION / CLINICAL INFORMATION: Unspecified abdominal pain. TECHNIQUE: Axial CT images were obtained through the abdomen and pelvis without IV contrast. All CT scans at doctors' hospital location are performed using CT dose reduction for ALARA by means of automated exposure control. COMPARISON: One view of the chest performed today. CTA chest from 09/09/2018. FINDINGS: LOWER CHEST: Mild chronic appearing parenchymal changes are noted along the lung bases. No other sign ificant abnormality. LIVER: No significant abnormality. GALLBLADDER: Surgically absent. BILE DUCTS: No significant abnormality. PANCREAS: No significant abnormality. SPLEEN: Absent. ADRENALS: No significant abnormality. RIGHT KIDNEY/URETER: No significant abnormality. LEFT KIDNEY/URETER: No significant abnormality. STOMACH/SMALL BOWEL: No significant abnormality. COLON: No significant abnormality. APPENDIX: No significant abnormality. PERITONEUM: No free fluid. No free air. No fluid collection. LYMPH NODES: No significant adenopathy. VASCULATURE: No significant abnormality. URINARY BLADDER: No significant abnormality. REPRODUCTIVE ORGANS: No significant abnormality. ADDITIONAL FINDINGS: None. BONES: No significant abnormality IMPRESSION: 1. No significant abnormality to explain the patient's abdominal pain. Signer Name: Vladislav Osorio MD Signed: 01/22/2022 6:13 PM Workstation Name: [id number]
[2022-01-22] MEDS ORDERED: HYDROmorphone 1 MG/1 ML INJ IM ONE (18:46)
[2022-01-22 19:03] VITALS: BP 107/66
--- NOTE | 2022-01-22 19:38 | Emergency Department Report ---
ED General Adult HPI - General Chief complaint: Sickle Cell Crisis Stated complaint: SICKLE CELL CRISIS//VOMITING/HENRIK/DIARRHEA Time Seen by Provider: 01/22/22 13:15 Source: EMS Mode of arrival: Wheelchair Limitations: Other - History of Present Illness Initial comments: Pt reports sickle crisis, n/v and difficulty breathing that presented today -: days(s) Location: chest, abdomen Radiation: non-radiation Severity scale (0 -10): 8 Improves with: none Worsens with: none Associated Symptoms: denies: denies other symptoms, confusion, chest pain, cough Treatments Prior to Arrival: none - Related Data Previous Rx's Medication Instructions Recorded Last Taken Type Folic Acid [Folvite] 1 mg PO QDAY #30 tablet 09/07/16 Unknown Rx oxyCODONE /ACETAMINOPHEN [Percocet 2 tab PO Q4H PRN #60 tablet 09/07/16 Unknown Rx 5/325 mg] Permethrin 5% [Acticin 5% CREAM] 1 applicatio TP QDAY #2 tube 11/26/16 Unknown Rx Skin Emollient [Aquaphor] 1 applic TP QID PRN #2 tube 11/26/16 Unknown Rx hydrOXYzine HCL [Atarax] 25 mg PO Q6HR PRN #20 tablet 11/26/16 Unknown Rx ALBUTEROL Inhaler(NF) [VENTOLIN 2 puff IH Q6H PRN 1 Days #1 inha 09/10/18 Unknown Rx Inhaler(NF)] Acetaminophen/Codeine [Tylenol 1 tab PO Q6H PRN #14 tab 09/10/18 Unknown Rx /Codeine # 3 tab] Amoxicillin/K Clav Tab [Augmentin 1 tab PO Q12HR #20 tab 09/10/18 Unknown Rx 875MG TAB] Docusate Sodium [Colace] 100 mg PO BID 30 Days #60 capsule 09/10/18 Unknown Rx Ferrous Sulfate [Feosol 325 MG tab] 325 mg PO BID 30 Days #60 tablet 09/10/18 Unknown Rx Allergies Allergy/AdvReac Type Severity Reaction Status Date / Time No Known Allergies Allergy Verified 01/22/22 16:59 ED Review of Systems ROS: Stated complaint: SICKLE CELL CRISIS//VOMITING/HENRIK/DIARRHEA Other details as noted in HPI Constitutional: denies: chills, fever Eyes: denies: eye pain, eye discharge, vision change ENT: denies: ear pain, throat pain Respiratory: denies: cough, shortness of breath, wheezing Cardiovascular: denies: chest pain, palpitations Endocrine: no symptoms reported Gastrointestinal: denies: abdominal pain, nausea, diarrhea Genitourinary: denies: urgency, dysuria, discharge Musculoskeletal: denies: back pain, joint swelling, arthralgia Skin: denies: rash, lesions Neurological: denies: headache, weakness, paresthesias Psychiatric: denies: anxiety, depression Hematological/Lymphatic: denies: easy bleeding, easy bruising ED Past Medical Hx - Past Medical History Previous Medical History?: Yes Hx Hypertension: No Hx CVA: No Hx Heart Attack/AMI: No Hx Congestive Heart Failure: No Hx Diabetes: No Hx Deep Vein Thrombosis: Yes Hx GERD: No Hx Liver Disease: No Hx Renal Disease: No Hx Sickle Cell Disease: Yes Hx Arthritis: No Hx Headaches / Migraines: No Hx Seizures: No Hx Kidney Stones: No Hx Psychiatric Treatment: No Hx Asthma: No Hx COPD: No Hx Tuberculosis: No Hx Dementia: No Hx HIV: No Additional medical history: Deaf - Surgical History Past Surgical History?: Yes Hx Coronary Stent: No Hx Open Heart Surgery: No Hx Pacemaker: No Hx Internal Defibrillator: No Hx Cholecystectomy: Yes Hx Appendectomy: No Hx Breast Surgery: No Additional Surgical History: c section X 2 - Social History Smoking Status: Never Smoker Substance Use Type: None - Medications Home Medications: Home Medications Medication Instructions Recorded Confirmed Last Taken Type Folic Acid [Folvite] 1 mg PO QDAY #30 tablet 09/07/16 11/26/16 Unknown Rx oxyCODONE /ACETAMINOPHEN [Percocet 2 tab PO Q4H PRN #60 tablet 09/07/16 11/26/16 Unknown Rx 5/325 mg] Permethrin 5% [Acticin 5% CREAM] 1 applicatio TP QDAY #2 tube 11/26/16 Unknown Rx Skin Emollient [Aquaphor] 1 applic TP QID PRN #2 tube 11/26/16 Unknown Rx hydrOXYzine HCL [Atarax] 25 mg PO Q6HR PRN #20 tablet 11/26/16 Unknown Rx ALBUTEROL Inhaler(NF) [VENTOLIN 2 puff IH Q6H PRN 1 Days #1 inha 09/10/18 Unknown Rx Inhaler(NF)] Acetaminophen/Codeine [Tylenol 1 tab PO Q6H PRN #14 tab 09/10/18 Unknown Rx /Codeine # 3 tab] Amoxicillin/K Clav Tab [Augmentin 1 tab PO Q12HR #20 tab 09/10/18 Unknown Rx 875MG TAB] Docusate Sodium [Colace] 100 mg PO BID 30 Days #60 capsule 09/10/18 Unknown Rx Ferrous Sulfate [Feosol 325 MG tab] 325 mg PO BID 30 Days #60 tablet 09/10/18 Unknown Rx ED Physical Exam - General Limitations: Other General appearance: alert, in no apparent distress - Head Head exam: Present: atraumatic, normocephalic - Eye Eye exam: Present: normal appearance - ENT ENT exam: Present: mucous membranes moist - Neck Neck exam: Present: normal inspection - Respiratory Respiratory exam: Present: normal lung sounds bilaterally. Absent: respiratory distress - Cardiovascular Cardiovascular Exam: Present: regular rate, normal rhythm. Absent: systolic murmur, diastolic murmur, rubs, gallop - GI/Abdominal GI/Abdominal exam: Present: soft, normal bowel sounds - Extremities Exam Extremities exam: Present: normal inspection - Back Exam Back exam: Present: normal inspection - Neurological Exam Neurological exam: Present: alert, oriented X3 - Psychiatric Psychiatric exam: Present: normal affect, normal mood - Skin Skin exam: Present: warm, dry, intact, normal color. Absent: rash ED Course Vital Signs 01/22/22 01/22/22 01/22/22 11:26 16:57 19:00 Temperature 99.9 F H 97.8 F Pulse Rate 110 H 106 H 74 Respiratory 18 22 18 Rate Blood Pressure 117/66 110/72 107/66 [Right] O2 Sat by Pulse 97 26 L 95 Oximetry 01/22/22 19:04 Temperature Pulse Rate Respiratory Rate Blood Pressure [Right] O2 Sat by Pulse 98 Oximetry ED Medical Decision Making - Lab Data Result diagrams: 01/22/22 11:47 01/22/22 14:16 - EKG Data -: EKG Interpreted by Me EKG shows normal: sinus rhythm Rate: normal - Radiology Data Radiology results: report reviewed, image reviewed - Medical Decision Making work up was unremarkable , pt asking for dialudid , refusing other meds, ct scan negative H.H stable , x ray shwoed possible scarring no pnuemonia no resiratoyr distress Critical care attestation.: If time is entered above; I have spent that time in minutes in the direct care of this critically ill patient, excluding procedure time. ED Disposition Clinical Impression: Sickle cell pain crisis, Leukocytosis Disposition: 01 HOME / SELF CARE / HOMELESS Is pt being admited?: No Does the pt Need Aspirin: No Condition: Stable
--- NOTE | 2022-01-23 11:12 | Electrocardiograph Report ---
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
== END 2022-01-22 21:45 | disposition home or self-care (01) ==
LOC: ED 11:22
DX: D57.00 Hb-SS disease with crisis, unspecified (principal); D72.829 Elevated white blood cell count, unspecified; Z86.718 Personal history of other venous thrombosis and embolism; Z79.899 Other long term (current) drug therapy
CPT/HCPCS: 36415; 71045; 74176; 80048; 80053; 80076; 82140; 82150; 83690; 84703; 85025; 85610; 87040; 93005; 96372; 99285; J1170; J1885